=== PATIENT | female | born 1985 | race Caucasian/White ===

== ENCOUNTER 2017-03-13 12:53 | Emergency (ER) | payer SELFPAY ==
[~2017-03-13] VITALS: Ht 167.6 cm; Wt 101.1 kg
[2017-03-13 13:02] VITALS: BP 117/68
[2017-03-13 13:20] LABS: ADD MIUA? YES; BILIRUBIN NEGATIVE; BLOOD SMALL; COLOR YELLOW ((YELLOW)); GLUCOSE (STRIP) NEGATIVE; KETONES NEGATIVE; LEUKOCYTES LARGE; NITRITE POSITIVE; PROTEIN (STRIP) NEGATIVE; SPECIFIC GRAVITY 1.006 (1.000-1.030)
[2017-03-13 13:30] LABS: HEMATOCRIT 34.8 % (36.0-46.0); MCH 31.9 PG (29.0-34.0); MCHC 33.6 G/DL (30.0-36.0); MCV 94.8 FL (83-99); MEAN PLAT.VOLUME 10.3 uM^3 (9.5-12.4); PLATELET COUNT 93 K/uL (156-360); RBC DIS.WIDTH-CV 18.8 % (11.8-14.6); RBC DIS.WIDTH-SD 65.9 % (39-53); RED BLOOD COUNT 3.67 M/uL (3.80-5.20); WHITE BLOOD COUNT 6.1 K/uL (4.1-10.2)
[2017-03-13 13:34] LABS: BACTERIA RARE /HPF; CALCIUM OXALATE CRYSTALS 2+ /HPF; EPITHELIAL CELLS 1+ /HPF; MUCUS TRACE /LPF; RED BLOOD CELLS 0-5 /HPF (0-5); WHITE BLOOD CELLS 15-20 /HPF (0-5)
[2017-03-13 13:42] LABS: CHLORIDE 108 mEq/L (99-109); POTASSIUM 4.4 mEq/L (3.7-5.4); SODIUM 141 mEq/L (136-147)
[2017-03-13 13:44] LABS: GLUCOSE 103 mg/dL (70-99)
[2017-03-13 13:46] LABS: ANION GAP 13 MEQ/L (2-14)
[2017-03-13 13:49] LABS: UREA NITROGEN (BUN) 7 mg/dL (9-23)
[2017-03-13 13:52] LABS: GFR ESTIMATE (CALCULATED) > 59 mL/min/
== END 2017-03-13 15:33 | disposition left against medical advice (07) ==
LOC: EME 12:53
DX: F10.129 Alcohol abuse with intoxication, unspecified (principal); Z53.21 Procedure and treatment not carried out due to patient leaving prior to being seen by health care provider
CPT/HCPCS: 80048; 81003; 85027; 86850; 86870; 86900; 86901; 86905; 86920; 99281